=== PATIENT | female | born 1960 | race Hispanic/Latino ===

== ENCOUNTER → 2020-04-08 | Day surgery (SDC) | payer BC, OTHER ==
[~2020-04-08] MED LIST: AMARYL4 MG PO; ASPIR 8181 MG PO; FENTANYL CITRATE/PF 100MCG/2 ML INJ ONE; JARDIANCE25 MG PO; LOSARTAN POTASS25 MG PO; METFORMIN HCL850 MG PO; MIDAZOLAM HCL 2 MG/2 ML VIAL ONE; OR PHACO EYE KIT ONE; PREOP PHACO EYE KIT ONE
[2020-04-08 11:00] VITALS: BP 112/60
== END | disposition home or self-care (01) ==
LOC: OR 07:27
PROVIDERS: ATTEND Ophthalmology
DX: H25.11 Age-related nuclear cataract, right eye (principal); E11.9 Type 2 diabetes mellitus without complications; Z01.812 Encounter for preprocedural laboratory examination; Z20.828 Contact with and (suspected) exposure to other viral communicable diseases; Z79.82 Long term (current) use of aspirin; Z79.84 Long term (current) use of oral hypoglycemic drugs
CPT/HCPCS: 36415; 66984; 82948; U0002; V2787; J2250; J3010